=== PATIENT | male | born 1970 | race Caucasian/White ===

== ENCOUNTER → 2017-11-16 | Outpatient (CLI) | payer OTHER, BC | END | disposition home or self-care (01) | LOC: KCIC MRI 11:31 | DX: M25.571 Pain in right ankle and joints of right foot (principal); R60.0 Localized edema | CPT/HCPCS: 73718 ==

== ENCOUNTER 2019-10-03 10:47 | Emergency (ER) | payer OTHER, BC ==
[~2019-10-03] VITALS: Ht 177.8 cm; Wt 127.0 kg
[~2019-10-03 10:47] MED LIST: IBUP100O25 PO; POLY17PO29 PO; VARD20TA2 PO; ZOLP10TA PO
[2019-10-03 10:57] VITALS: BP 183/94
[2019-10-03] MEDS: LIDOCAINE 1% Multi-Dose 20 ML VIAL. INJ ONE (12:00)
[2019-10-03] MEDS ORDERED: DIPHTH,PERTUSS(ACELL),TET TOX 0.5 ML DISP.SYRIN. VAX IM ONE (12:30)
--- NOTE | 2019-10-03 13:08 | PHYS DOC ---
Past Medical History Past Medical History: No Pertinent History Past Surgical History: Other Additional Past Surgical Histo: RT SHOULDER ROTATOR CUFF REPAIR Alcohol Use: None Drug Use: None Adult General Chief Complaint Chief Complaint: LACERATION/AVULSION HPI HPI Patient is a 49 year old right-handed male patient presented to the ED today with left index finger laceration, patient accidentally cut himself with a pocket knife. Review of Systems Review of Systems Constitutional: Denies fever or chills [] Musculoskeletal: Denies back pain or joint pain [] Integument: Reports left index finger laceration Neurologic: Denies headache, focal weakness or sensory changes [] All other systems were reviewed and found to be within normal limits, except as documented in this note. Current Medications Current Medications Current Medications Medications (Trade) Dose Ordered Sig/Dylan Start Time Stop Time Status Last Admin Dose Admin Diphtheria/ Tetanus/Acell Pertussis (Boostrix) 0.5 ml ONCE ONCE 10/03/19 12:30 10/03/19 12:31 DC Lidocaine HCl (Lidocaine 1% 20ml Vial) 20 ml 1X ONCE 10/03/19 11:15 10/03/19 11:16 DC Allergies Allergies Allergies Coded Allergies Type Severity Reaction Last Updated Verified No Known Drug Allergies 04/06/15 No Physical Exam Physical Exam Constitutional: Well developed, well nourished, no acute distress, non-toxic appearance. [] Skin: Does aspect of the left index finger proximal and with a laceration approximately 4 cm long, this no obvious tendon involvement. Patient able to flex and extend the finger at the MIP, PIP and DIP joints. Adequate radius sensation to the left index finger. +2 left radial pulse. Cap refill less than 2 seconds the left index finger. Back: No tenderness, no CVA tenderness. [] Extremities: No tenderness, no cyanosis, no clubbing, ROM intact, no edema. [] Neurologic: Alert and oriented X 3, normal motor function, normal sensory function, no focal deficits noted. [] Psychologic: Affect normal, judgement normal, mood normal. [] Current Patient Data Vital Signs Vital Signs Date Time Temp Pulse Resp B/P (MAP) Pulse Ox O2 Delivery O2 Flow Rate FiO2 10/03/19 10:57 98.5 93 16 183/94 (123) 99 Room Air 98.5 EKG EKG [] Radiology/Procedures Radiology/Procedures Laceration/Wound Repair Wound Location: Left index finger Wound's Depth, Shape: Vertical Wound Length (cm): 4 cm approximately Wound Explored: clean Irrigated w/ Saline (ccs): 70 Betadine Prep?: Yes Anesthesia: 1% buffered lidocaine Volume Anesthetic (ccs): 8 Wound Repaired With: Ethilon 5.0 and 4.0 Number of Sutures: 9 interrupted sutures Progress : Pressure dressing was applied to the laceration Course & Med Decision Making Course & Med Decision Making Pertinent Labs and Imaging studies reviewed. (See chart for details) This is a 49-year-old male patient presenting to the ED today with left index finger laceration that was closed by me as noted in procedures. Wound care instructions and return precautions provided. Tetanus updated. Dragon Disclaimer Dragon Disclaimer This electronic medical record was generated, in whole or in part, using a voice recognition dictation system. Departure Departure Impression: Primary Impression: Laceration of left index finger Disposition: HOME, SELF-CARE Condition: STABLE Referrals: ANGELA SCHNEIDER MD (PCP) Follow-up with your own primary care doctor or the emergency room in 7-10 days for suture removal Patient Instructions: Laceration Care, Adult, [id number] Additional Instructions: You have left index finger laceration that was closed with stitches. You can shower, do not soak your finger. Apply Neosporin or bacitracin to the area twice a day. Monitor the area for any signs of infection including but not limited to increased redness, warmth, yellow drainage from the area and return to the ED if they occur. Please follow-up with your own doctor or the emergency room in 7- 10 days for stitches removal. Problem Qualifiers Primary Impression: Laceration of left index finger Encounter type: initial encounter Damage to nail status: without damage Foreign body presence: without foreign body Qualified Codes: S61.211A - Laceration without foreign body of left index finger without damage to nail, initial encounter BEST STEVENSON APRN Oct 03, 2019 13:08
== END 2019-10-03 13:16 | disposition home or self-care (01) ==
LOC: ER 10:47
DX: S61.211A Laceration without foreign body of left index finger without damage to nail, initial encounter (principal); W26.0XXA Contact with knife, initial encounter; Y93.89 Activity, other specified; Y92.89 Other specified places as the place of occurrence of the external cause; Y99.8 Other external cause status
CPT/HCPCS: 12002; 99283